=== PATIENT | female | born 1955 | race Caucasian/White ===

== ENCOUNTER 2023-05-10 16:07 | Outpatient (CLI) | payer MEDICARE, BC, SELFPAY | END 2023-05-10 16:08 | disposition home or self-care (01) | LOC: NFLDUCREF 16:08 | PROVIDERS: PCP Family Medicine; Visit Provider Registered Nurse | DX: R21 Rash and other nonspecific skin eruption (principal) | CPT/HCPCS: 86618 ==

== ENCOUNTER 2023-05-22 08:00 | Outpatient (RCR) | payer MEDICARE, BC, SELFPAY ==
--- NOTE | 2023-03-22 13:55 | URNOTE ---
REceived request for prior auth for REmicade ([id number]). Pt has medicare primary. Prior authorization is not required as services are based on medical necessity and follow medicare guidelines.
[2023-03-27 08:37] VITALS: BP 108/73; PULSE 65; RESP 16; TEMP 36.5; O2SAT 97
[2023-03-27 08:58] LABS: Basophils Percent Auto 0.9 % (0.0-3.0); Eosinophils Percent Auto 0.9 % (0.0-7.0); Hematocrit 37.3 % (33.0-51.0); Hemoglobin* 12.9 gm/dL (12.0-16.0); Lymphocytes Percent Auto 30.8 % (20-44); Mean Corpuscular HGB Conc 35 gm/dL (32-36); Mean Corpuscular Hemoglobin 33 pg (26-34); Mean Corpuscular Volume 95 fL (80-100); Monocytes Percent Auto 11.8 % (0.0-11.0); Neutrophils Percent Auto 55.6 % (42.0-72.0); Platelet Count* 197 K/uL (140-440); RDW Coefficient of Variation % 12.9 % (11.5-15.5); Red Blood Count 3.93 m/uL (4.00-5.20); White Blood Count* 4.41 K/uL (4.50-11.00)
[2023-03-27 09:03] LABS: Slide Review Reflex No
[2023-03-27 09:11] LABS: Albumin* 4.3 g/dL (3.3-5.0); Chloride* 102 mmol/L (96-114); Potassium* 3.6 mmol/L (3.6-5.1); Sodium* 136 mmol/L (135-149)
[2023-03-27 09:13] LABS: Creatinine* 0.5 mg/dL (0.5-1.5); Estimated Glomerular Filt Rate 101 ml/min
[2023-03-27 09:14] LABS: Alanine Aminotransferase* 21 U/L (4-35); Alkaline Phosphatase* 79 U/L (40-150); Aspartate Amino Transferase* 39 U/L (12-35); Bilirubin Total* 0.9 mg/dL (0.1-1.5); Blood Urea Nitrogen* 11 mg/dL (7-30); Calcium* 8.9 mg/dL (8.4-10.6); Carbon Dioxide* 27 mmol/L (20-32); Glucose* 117 mg/dL (60-115); Total Protein* 8.4 g/dL (6.0-8.3)
[2023-05-22 08:00] VITALS: BP 125/71; PULSE 68; RESP 16; TEMP 36.2; O2SAT 98
== END 2023-09-23 23:59 | disposition home or self-care (01) ==
LOC: CCIC 08:00
PROVIDERS: PCP Family Medicine; Referring Provider Family Medicine; Visit Provider Internal Medicine Hematology & Oncology
DX: D86.0 Sarcoidosis of lung (principal)
CPT/HCPCS: 36415; 80053; 85025; 96413; 96415; J7050

== ENCOUNTER 2024-05-07 09:00 | Outpatient (RCR) | payer MEDICARE, BC, SELFPAY ==
--- NOTE | 2024-03-07 15:55 | URNOTE ---
Request received for authorization for Infliximab ([id number]). Prior authorization is not required as services are based on medical necessity and follow Medicare guidelines.
[2024-03-12 11:00] VITALS: BP 130/71; PULSE 72; RESP 16; TEMP 36.8; O2SAT 97
--- NOTE | 2024-03-12 11:10 | ONC.NURNOTE ---
Addendum entered and electronically signed by Janene Booth RN 03/12/24 14:22: Received a call back from ILIA Summers from the clinic in [place]. Stated that Dr. James would like to have the Remicade dose be 5mg/kg and use the new weight of 67kg which would equal 335mg and round down to 300mg. Notified clinic that we gave the 400mg dose today as we couldn't delay infusion any longer but will fax a new order form to them to fill out and send back with the new weight and dose. Also faxed lab results to the provider as well. Original Note: The current order for patients Remicade was 4.6mg/kg with patient weighing 87kg for a total of 400mg rounded dose. Patient arrives today and patient weighs 148.4lbs which equals 67kg. With current dose, patient would be at 335mg which would round to 300mg. Patient stated that she has been getting 400mg for the last year down in [place]. Made call to ordering physician at [facility] Department of Rheumatology at 1110 to inquire about the difference in weight. Did not hear back from them. Called Pharmacy to consult and determined that 400mg would be appropriate for today given that patient has stated that she has always weighed 140lbs-150lbs and that the clinic she went to in [place] didn't check her weight and went off of the initial weight.
[2024-03-12 11:38] LABS: Basophils Percent Auto 0.3 % (0.0-3.0); Eosinophils Percent Auto 0.6 % (0.0-7.0); Hematocrit 37.3 % (33.0-51.0); Hemoglobin* 12.8 gm/dL (12.0-16.0); Mean Corpuscular HGB Conc 34 gm/dL (32-36); Mean Corpuscular Hemoglobin 32 pg (26-34); Mean Corpuscular Volume 93 fL (80-100); Monocytes Percent Auto 11.3 % (0.0-11.0); Neutrophils Percent Auto 57.8 % (42.0-72.0); Platelet Count* 166 K/uL (140-440); Red Blood Count 4.03 m/uL (4.00-5.20)
[2024-03-12 11:39] LABS: Slide Review Reflex No
[2024-03-12] MEDS: [UNRECOGNIZED DRUG - OTHER] IV (11:53)
[2024-03-12] MEDS: TUBING PRIMARY IV (11:53)
[2024-03-12] MEDS: INFLIXIMAB IV (11:53)
[2024-03-12] MEDS: 0.9 % SODIUM CHLORIDE 250 ml 250 ML 35 ML IV (11:54)
[2024-03-12 11:56] LABS: Albumin* 4.3 g/dL (3.3-5.0)
[2024-03-12 11:59] LABS: Alanine Aminotransferase* 14 U/L (4-35); Aspartate Amino Transferase* 37 U/L (12-35)
[2024-03-12 13:08] VITALS: BP 119/68; PULSE 66; RESP 16; TEMP 36.6; O2SAT 98
[2024-03-12 13:53] LABS: Creatinine* 0.5 mg/dL (0.5-1.5); Estimated Glomerular Filt Rate 100 ml/min
[2024-05-07 09:00] VITALS: BP 119/75; PULSE 65; RESP 16; TEMP 36.7; O2SAT 98
[2024-05-07] MEDS: 0.9 % SODIUM CHLORIDE 250 ml 250 ML 35 ML IV (09:20)
[2024-05-07] MEDS: inFLIXimab (Remicade) 300 MG, TUBING PRIMARY 1 EACH, In-line 0.2 micron filter set 1 EA... 100 MG IV (09:26)
[2024-05-07 09:41] LABS: Albumin* 4.1 g/dL (3.3-5.0)
[2024-05-07 09:42] LABS: Basophils Percent Auto 0.5 % (0.0-3.0); Eosinophils Percent Auto 0.2 % (0.0-7.0); Hematocrit 37.8 % (33.0-51.0); Hemoglobin* 12.9 gm/dL (12.0-16.0); Immature Granulocytes Pct Auto 0.2 %; Lymphocytes Percent Auto 25.4 % (20-44); Mean Corpuscular HGB Conc 34 gm/dL (32-36); Mean Corpuscular Hemoglobin 32 pg (26-34); Mean Corpuscular Volume 92 fL (80-100); Neutrophils Percent Auto 63.7 % (42.0-72.0); Platelet Count* 155 K/uL (140-440); RDW Coefficient of Variation % 13.5 % (11.5-15.5); Red Blood Count 4.09 m/uL (4.00-5.20); White Blood Count* 4.01 K/uL (4.50-11.00)
[2024-05-07 09:44] LABS: Alanine Aminotransferase* 17 U/L (4-35); Aspartate Amino Transferase* 40 U/L (12-35); Creatinine* 0.5 mg/dL (0.5-1.5); Estimated Glomerular Filt Rate 100 ml/min
[2024-05-07 09:51] LABS: Slide Review Reflex No
--- NOTE | 2024-07-02 08:25 | ONC.NURNOTE ---
Spoke with pt, she is in [place] now until February. Planning on getting infliximab in [place].
== END 2024-09-08 23:59 | disposition home or self-care (01) ==
LOC: CCIC 09:00
PROVIDERS: PCP Family Medicine; Referring Provider Family Medicine; Visit Provider Clinical Nurse Specialist
DX: D86.0 Sarcoidosis of lung (principal)
CPT/HCPCS: 36415; 36592; 82040; 82565; 84450; 84460; 85025; 96365; 96413; J7050

== ENCOUNTER 2025-04-29 10:00 | Outpatient (RCR) | payer MEDICARE, BC, SELFPAY ==
[2025-03-10 10:02] VITALS: BP 252/75; PULSE 71; TEMP 36.6; O2SAT 98
[2025-03-10] MEDS: INFLIXIMAB IV (10:34)
[2025-03-10] MEDS: TUBING PRIMARY IV (10:34)
[2025-03-10] MEDS: [UNRECOGNIZED DRUG - OTHER] IV (10:34)
[2025-04-29 10:03] VITALS: BP 147/76; PULSE 67; RESP 18; TEMP 37.1; O2SAT 98
[2025-04-29] MEDS: INFLIXIMAB IV (10:42)
[2025-04-29] MEDS: TUBING PRIMARY IV (10:42)
[2025-04-29] MEDS: [UNRECOGNIZED DRUG - OTHER] IV (10:42)
== END 2025-09-06 23:59 | disposition home or self-care (01) ==
LOC: CCIC 10:00
PROVIDERS: PCP Family Medicine; Referring Provider Family Medicine; Visit Provider Clinical Nurse Specialist
DX: D86.0 Sarcoidosis of lung (principal)
CPT/HCPCS: 96413; 96415; J1745; J7050